=== PATIENT | female | born 1975 | race Caucasian/White ===

== ENCOUNTER 2020-01-18 11:39 | Emergency (ER) | payer MEDICAID ==
[~2020-01-18] VITALS: Ht 165.1 cm; Wt 129.5 kg
--- NOTE | 2020-01-18 13:18 | NUR ---
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
[2020-01-18 13:23] LABS: BASOPHILS % (AUTO) 1 % (0-1); EOSINOPHILS % (AUTO) 2 % (1-7); LYMPHOCYTES % (AUTO) 21 % (22-44); MEAN CORPUSCULAR HEMOGLOBIN 20.7 pg (27.0-34.8); MEAN PLATELET VOLUME 8.5 fL (7.4-10.4); MONOCYTES % (AUTO) 8 % (2-9); NEUTROPHILS % (AUTO) 69 % (42-75); PLATELET COUNT 283 x10^3/uL (130-400); RED CELL DISTRIBUTION WIDTH 19.2 % (9.6-15.2)
--- NOTE | 2020-01-18 13:23 | NUR ---
NA X 1 @ 1322
[2020-01-18 13:34] LABS: ALBUMIN 3.5 g/dL (3.4-5.0); ANION GAP 3 mmol/L (5-15); CALCIUM 9.7 mg/dL (8.5-10.1); CHLORIDE 105 mmol/L (98-107)
--- NOTE | 2020-01-18 13:38 | NUR ---
NA X 2 @ 1331
[2020-01-18 13:39] LABS: ALANINE AMINOTRANSFERASE 28 U/L (12-78); ALKALINE PHOSPHATASE 52 U/L (45-117); BILIRUBIN,TOTAL 0.4 mg/dL (0.2-1.0); CREATININE 0.65 mg/dL (0.55-1.02); TOTAL PROTEIN 7.9 g/dL (6.4-8.2)
--- NOTE | 2020-01-18 14:10 | NUR ---
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
[2020-01-18 14:18] LABS: MD MORPH REVIEW ONLY
[2020-01-18 14:21] LABS: ANISOCYTOSIS 2+; MICROCYTOSIS 2+
[2020-01-18 14:22] LABS: HYPOCHROMIA 1+; POLYCHROMASIA 1+
[2020-01-18 14:23] LABS: <PLATELET ESTIMATE> ADEQUATE; <PLT MORPHOLOGY> NORMAL PLT MORPH; OVALOCYTES 1+
[2020-01-18 15:21] VITALS: BP 128/81
--- NOTE | 2020-01-18 15:22 | NUR ---
UA SENT. WAITING ON US. VSS. PT RESTING, CALL LIGHT IN REACH
[2020-01-18 15:40] LABS: MICROSCOPIC INDICATED
--- NOTE | 2020-01-18 16:27 | NUR ---
Patient/Caregiver given discharge instructions and they have confirmed that they understand the instructions. Patient ambulatory with steady gait.
== END 2020-01-18 16:29 | disposition home or self-care (01) ==
LOC: ED 16:22
DX: R11.2 Nausea with vomiting, unspecified (principal); R10.30 Lower abdominal pain, unspecified; N89.8 Other specified noninflammatory disorders of vagina; M19.90 Unspecified osteoarthritis, unspecified site; Z90.89 Acquired absence of other organs
CPT/HCPCS: 36415; 76801; 80053; 81001; 84702; 85025; 86901; 99284